=== PATIENT | female | born 2000 | race Caucasian/White ===

== ENCOUNTER 2020-11-20 15:40 | Emergency (ER) | payer OTHER, SELFPAY ==
[2020-11-20 15:43] VITALS: BP 148/86; PULSE 64; RESP 18; TEMP 37; O2SAT 100
--- NOTE | 2020-11-20 15:48 | DI.RAD.S_ITS ---
PROCEDURE: XR FINGER RT MIN 2V INDICATIONS: crush injury TECHNIQUE: AP hand, 2 views of the right finger(s) acquired. COMPARISON: None. FINDINGS: Bones: Mildly displaced of the distal phalanx of the ring finger. Soft tissues: Associated soft tissue swelling. IMPRESSION: Ring finger distal phalanx fracture Dictated by: Partha Siu M.D. on 11/20/2020 at 16:09 Approved by: Partha Siu M.D. on 11/20/2020 at 16:15
[2020-11-20] MEDS: LIDO 1%/SOD BICARB 8.4% (10ML) 10 ML SYRINGE INJ (19:06)
[2020-11-20] MEDS: HYDROCODONE/ACET 5/325 PREPACK 1 BOTTLE MISC (19:56)
--- NOTE | 2020-11-20 22:41 | ED_ITS ---
HPI - Extremity Injury (Upper) General Chief Complaint: Extremity Injury, Upper Stated Complaint: Right Ring Finger Injury Time Seen by Provider: 11/20/20 18:02 Source: patient Mode of arrival: Ambulatory Limitations: no limitations History of Present Illness HPI narrative: 20-year-old female nonsmoker with noncontributory medical history presents with a chief complaint of an injury to tip of her right ring finger about 24 hours ago. She was flipping the lever on a vehicle when it forcefully snapped upward and injured her finger. She denies any crushing type injury, laceration or other. She has minimal bleeding and wrapped in a bandage over the past 24 hours. She denies any fever or chills. She denies any numbness, tingling or weakness. She states her pain is worse when she moves and improves with rest. She is able to make a fist. She states that she had a significant allergic reaction to tetanus as a child and is therefore not up-to-date with his immunization. complaint: injury to: right Onset (ago): hour(s) Other Extremity Injury: Right: fingers Other injuries: none Handedness: right Place: home Severity: mild Relieving factors: rest Exacerbating factors: movement of extremity Context: direct blow Associated symptoms: denies other symptoms Treatments prior to arrival: bandage Related Data Previous Rx's Medication Instructions Recorded cephalexin 500 mg PO Q6H 7 Days #28 cap 11/20/20 Allergies Allergy/AdvReac Type Severity Reaction Status Date / Time Tetanus Vaccines and Toxoid Allergy Verified 11/20/20 19:06 Review of Systems Constitutional Constitutional: Denies chills, Denies fatigue, Denies fever(s), Denies frequent falls, Denies lethargy and Denies weakness Eyes Eyes: Denies change in vision, Denies eye discharge, Denies irritation and Denies loss of vision ENT Ears, Nose, Mouth, and Throat: Denies change in voice, Denies dizziness, Denies neck pain, Denies sore throat and Denies throat swelling Cardiovascular Cardiovascular: Denies chest pain, Denies irregular heart rhythm, Denies lightheadedness, Denies palpitations, Denies dyspnea, Denies dyspnea on exertion and Denies orthopnea Respiratory Respiratory: Denies cough, Denies dyspnea, Denies dyspnea on exertion and Denies wheezing Gastrointestinal Gastrointestinal: Denies abdominal pain, Denies change in bowel habits, Denies diarrhea, Denies nausea and Denies vomiting Musculoskeletal Musculoskeletal: Reports arthralgias, Reports limited range of motion, Denies neck pain and Denies numbness Integumentary/Breasts Skin/Breast: Denies pruritus, Denies erythema, Denies rash and Denies wounds Neurologic Neurologic: Denies behavioral changes, Denies confusion, Denies dizziness, Denies frequent falls, Denies loss of vision, Denies numbness and Denies weakness Psychiatric Psychiatric: Denies anxiety, Denies behavioral changes, Denies confusion, Denies depression, Denies homicidal ideation and Denies suicidal ideation Endocrine Endocrine: Denies fatigue, Denies flushing and Denies palpitations Hematologic/Lymphatic Hematologic/Lymphatic: Denies easy bruising Allergic/Immunologic Allergic/Immunologic: Denies urticaria, Denies throat swelling and Denies wheezing Patient History Smoking Status: Never smoker alcohol intake frequency: 0-2 drinks per day Substance Use Type: does not use Exam Narrative Exam Narrative: GEN: AOx3 and in mild distress EYES: Pupils are equal, round, and reactive to light and accommodation. Extraoccular muscles are intact bilaterally. There is no subconjunctival hemorrhage or exudate. CHEST: Lungs are clear to auscultation bilaterally and free of wheezes, rales, or rhonchi. Heart rate is regular rhythm, there are no murmurs, clicks, rubs, or gallops. There is no chest wall tenderness. ABD: Abdomen is soft and nontender. There is no guarding or rebound. Bowel sounds are normal in all 4 quadrants. There is no mass or organomegaly. EXT: Pain at tip of right ring finger. Full but painful range of motion. Sensation intact. Very minimal bleeding at nailfold. The nail has lifted up minimally at nailfold. Otherwise full painless ROM of all extremities with no loss of sensation or strength. SKIN: Warm, pink, and dry. No erythema or rash Initial Vital Signs Initial Vital Signs: Vital Signs Temperature 98.6 F 11/20/20 15:43 Pulse Rate 64 11/20/20 15:43 Respiratory Rate 18 11/20/20 15:43 Blood Pressure 148/86 H 11/20/20 15:43 Pulse Oximetry 100 11/20/20 15:43 Procedures Nerve Block Nerve Block 1: Time out performed: Yes Local Anesthetic: lidocaine 1% and with bicarb Amount of anesthesia used (mL): 4 Side: right Nerve Blocks: digital Procedure Successful: Yes Patient Tolerated Procedure: Well Complications: none Orthopedic Splinting/Casting Injury #1: Side: right Upper Extremity Injury Location: finger Upper Extremity Immobilizer: aluminum form splint Post splinting neuro exam: intact Post splinting vascular exam: intact Placed by: Nursing Course Course Course Narrative: once numbed finger is scrubbed with chlorhexadine and soaked for 15-20 minutes. No repair needed. Minimal displacement and no reduction needed. Extensive discussion regarding need for close follow up, antibiotics and return precautions. Patient demonstrates understanding by verbalizing back to me. Questions answered to her apparent satisfaction Orders Ordered: ED Orders 11/20/20 15:48 XR finger RT min 2V Stat Discontinued Medications Hydrocodone Bitart/Acetaminophen (Hydrocodone/Acet 5/325 Prepack) 1 bottle MISC SEEINSTR ONE Stop: 11/20/20 19:47 Last Admin: 11/20/20 19:56 Dose: 1 bottle Documented by: RADHA Lidocaine/Sodium Bicarbonate (Lido 1%/Sod Bicarb 8.4% (10ml) 10 Ml Syringe) 10 ml INJ NOW ONE Stop: 11/20/20 19:04 Last Admin: 11/20/20 19:06 Dose: 10 ml Documented by: PORTILLO Vital Signs Vital signs: Vital Signs - 8 hr 11/20/20 15:43 Temperature 98.6 F Pulse Rate 64 Respiratory Rate 18 Blood Pressure 148/86 H Pulse Oximetry 100 Discharge Plan Departure Patient Disposition: Home Clinical Impression: Finger fracture, right Qualifiers: Encounter type: initial encounter Finger: ring finger Fracture type: open Phalanx: distal Fracture alignment: displaced Qualified Code(s): S62.634B - Displaced fracture of distal phalanx of right ring finger, initial encounter for open fracture Instructions: DI for Finger Fracture Activity Restrictions/Additional Instructions: *You have been diagnosed with [right ring finger distal phalanx fracture with overlying laceration, this is potentially an open fracture and will be treated as such.] *What to do: *Take medications as directed: Even sent with pain medications and I sent antibiotics to [facility] at your request *Follow up with your primary care provider in 2-3 days, call for an appointment. Let them know you were seen in the Emergency Department and that we ask that you be seen in follow up. I have also included contact information for the on-call orthopedist *Return to ER if you should have any new, worsening or concerning symptoms Prescriptions: New cephalexin 500 mg capsule 500 mg PO Q6H 7 Days Qty: 28 RF: 0
== END 2020-11-20 20:02 | disposition home or self-care (01) ==
PROVIDERS: Emergency Provider Emergency Medicine
DX: S62.634B Displaced fracture of distal phalanx of right ring finger, initial encounter for open fracture (principal)
CPT/HCPCS: 64450; 73140; 99283

== ENCOUNTER → 2022-10-07 14:35 | Outpatient (CLI) | payer OTHER, SELFPAY ==
[2022-10-07 18:53] LABS: Add Manual Diff / Slide Review NO; Basophils Absolute Auto 0 /uL (0-100); Basophils Percent Auto 0.3 % (0-2); Eosinophils Absolute Auto 100 /uL (0-450); Eosinophils Percent Auto 0.9 % (2-4); Hematocrit 36.1 % (36-46); Hemoglobin 12.6 g/dL (12.0-16.0); Lymphocytes Absolute Auto 1600 /uL (1100-4500); Lymphocytes Percent Auto 23.6 % (25-40); Mean Corpuscular HGB Conc 34.8 % (30-36); Mean Corpuscular Hemoglobin 31.6 PG (26-34); Mean Corpuscular Volume 90.9 fL (80-100); Monocytes Absolute Auto 500 /uL (0-900); Monocytes Percent Auto 6.7 % (3-14); Neutrophils Absolute Auto 4600 /uL (1500-7000); Neutrophils Percent Auto 68.5 % (50-75); Platelet Count 248 X10^3/uL (150-400); Red Blood Cell Count 3.97 X10^6/uL (4.0-5.2); Red Cell Distribution Width 12.6 % (11.6-14.8); White Blood Cell Count 6.8 X10^3/uL (4.5-11.0)
[2022-10-07 19:10] LABS: Alanine Aminotransferase 17 IU/L (<35); Albumin 4.7 g/dL (3.5-5.0); Albumin Globulin Ratio 1.5 (1.0-2.8); Alkaline Phosphatase 88 U/L (38-126); Aspartate Aminotransferase 23 IU/L (14-36); BUN Creatinine Ratio 32.1 (6-22); Bilirubin Total 0.3 mg/dL (0.2-1.3); Blood Urea Nitrogen 18 mg/dL (7-17); Calcium 9.4 mg/dL (8.4-10.2); Carbon Dioxide 24 mmol/L (22-32); Chloride 101 mmol/L (98-107); Estimated Glomerular Filt Rate > 60 mL/min (>60); Globulin 3.2 g/dL (1.7-4.1); Glucose 101 mg/dL (70-100); HEMOLYSIS < 15 (0-50); Potassium 4.2 mmol/L (3.4-5.1); Sodium 138 mmol/L (137-145); Total Protein 7.9 g/dL (6.3-8.2)
[2022-10-07 19:17] LABS: HEMOLYSIS < 15 (0-50); Iron 170 ug/dL (37-170)
[2022-10-07 19:22] LABS: Hemoglobin A1C% w Est Avg Glu 4.9 % (4.0-6.0)
[2022-10-07 19:28] LABS: Percent Iron Saturation 44 % (15-50); Total Iron Binding Capacity 386 ug/dL (265-497); Transferrin 267 mg/dL (206-381)
[2022-10-07 19:44] LABS: Ferritin 9 ng/mL (6-137)
[2022-10-07 20:16] LABS: Folate 13.9 ng/mL (2.76-20.0); Vitamin B12 743 pg/mL (239-931)
== END ==
PROVIDERS: Visit Provider Naturopath
DX: Z13.21 Encounter for screening for nutritional disorder (principal); R53.83 Other fatigue
CPT/HCPCS: 80053; 82607; 82728; 82746; 83036; 83540; 83550; 85025

== ENCOUNTER → 2023-01-30 10:39 | Outpatient (CLI) | payer OTHER, SELFPAY ==
[2023-01-30 18:32] LABS: Add Manual Diff / Slide Review NO; Basophils Absolute Auto 0 /uL (0-100); Basophils Percent Auto 0.4 % (0-2); Eosinophils Absolute Auto 0 /uL (0-450); Eosinophils Percent Auto 0.1 % (2-4); Hematocrit 34.5 % (36-46); Hemoglobin 11.9 g/dL (12.0-16.0); Lymphocytes Absolute Auto 1500 /uL (1100-4500); Mean Corpuscular HGB Conc 34.6 % (30-36); Mean Corpuscular Hemoglobin 31.6 PG (26-34); Mean Corpuscular Volume 91.2 fL (80-100); Monocytes Absolute Auto 900 /uL (0-900); Monocytes Percent Auto 10.3 % (3-14); Neutrophils Absolute Auto 6300 /uL (1500-7000); Neutrophils Percent Auto 72.2 % (50-75); Platelet Count 253 X10^3/uL (150-400); Red Blood Cell Count 3.78 X10^6/uL (4.0-5.2); Red Cell Distribution Width 13.1 % (11.6-14.8); White Blood Cell Count 8.7 X10^3/uL (4.5-11.0)
[2023-01-30 19:09] LABS: Monotest Negative (Negative)
== END ==
PROVIDERS: PCP Family Medicine; Visit Provider Physician Assistant Medical
DX: J02.9 Acute pharyngitis, unspecified (principal)
CPT/HCPCS: 85025; 86318; 87070

== ENCOUNTER → 2023-06-30 09:30 | Outpatient (CLI) | payer OTHER, SELFPAY | PROVIDERS: PCP Family Medicine; Visit Provider Physician Assistant | DX: N39.0 Urinary tract infection, site not specified (principal) | CPT/HCPCS: 87077; 87086 ==

== ENCOUNTER → 2023-12-16 11:32 | Outpatient (CLI) | payer OTHER, SELFPAY ==
[2023-12-16 20:38] LABS: Add Manual Diff / Slide Review NO; Basophils Absolute Auto 0 /uL (0-100); Basophils Percent Auto 0.4 % (0-2); Eosinophils Absolute Auto 100 /uL (0-450); Eosinophils Percent Auto 1.2 % (2-4); Hemoglobin 12.5 g/dL (12.0-16.0); Lymphocytes Absolute Auto 1900 /uL (1100-4500); Lymphocytes Percent Auto 27.3 % (25-40); Mean Corpuscular HGB Conc 33.7 % (30-36); Mean Corpuscular Hemoglobin 30.1 PG (26-34); Mean Corpuscular Volume 89.3 fL (80-100); Monocytes Absolute Auto 400 /uL (0-900); Monocytes Percent Auto 5.4 % (3-14); Neutrophils Absolute Auto 4700 /uL (1500-7000); Neutrophils Percent Auto 65.7 % (50-75); Platelet Count 272 X10^3/uL (150-400); Red Blood Cell Count 4.14 X10^6/uL (4.0-5.2); Red Cell Distribution Width 12.9 % (11.6-14.8); White Blood Cell Count 7.1 X10^3/uL (4.5-11.0)
[2023-12-16 21:12] LABS: Estradiol, Total 124.2 pg/mL
[2023-12-16 22:52] LABS: HEMOLYSIS < 15 (0-50); Iron 193 ug/dL (37-170)
[2023-12-16 23:05] LABS: Percent Iron Saturation 47 % (15-50); Total Iron Binding Capacity 411 ug/dL (265-497)
[2023-12-16 23:08] LABS: Transferrin 336 mg/dL (206-381)
[2023-12-17 15:04] LABS: Vitamin B12 360 pg/mL (239-931)
[2023-12-17 23:14] LABS: Sex Hormone Binding Globulin 53.1 nmol/L (24.6-122.0)
[2023-12-18 08:13] LABS: Ferritin 7 ng/mL (6-137)
[2023-12-18 08:54] LABS: Folate 5.7 ng/mL (2.76-20.0)
[2023-12-22 10:50] LABS: Estrone,Serum 102 pg/mL (27-231)
[2023-12-22 21:36] LABS: Estrogen 313 pg/mL (.)
[2023-12-29 18:07] LABS: Testosterone, Free 2.8 pg/mL (0.0-4.2)
== END ==
PROVIDERS: PCP Family Medicine; Visit Provider Naturopath
DX: L70.0 Acne vulgaris (principal); N93.9 Abnormal uterine and vaginal bleeding, unspecified; Z13.21 Encounter for screening for nutritional disorder; R53.83 Other fatigue
CPT/HCPCS: 82607; 82670; 82672; 82679; 82728; 82746; 83540; 83550; 84270; 84402; 85025

== ENCOUNTER → 2024-02-10 11:19 | Outpatient (CLI) | payer OTHER, SELFPAY ==
[2024-02-10 20:21] LABS: Appearance Urine UA CLEAR; Bilirubin Urine UA NEGATIVE (NEGATIVE); Color Urine UA YELLOW; Glucose Urine UA NEGATIVE (Negative); Ketones Urine UA NEGATIVE (NEGATIVE); Leukocyte Esterase Urine UA NEGATIVE (NEGATIVE); Nitrite Urine UA NEGATIVE (Negative); Occult Blood Urine UA NEGATIVE (Negative); Protein Urine UA NEGATIVE (Negative); Specific Gravity Urine UA <=1.005 (1.000-1.035); Urobilinogen Urine UA 0.2 E.U./dL (0.2)
[2024-02-10 20:32] LABS: Bacteria Urine None Seen; Culture Indicated Urine Cult Not Indicated; RBC Urine None Seen (0-5/HPF); Squamous Epithelial Cell Urine None Seen (0-5/HPF); Transitional Epi Cells Urine None Seen (0-5/HPF); Urine Volume 10mL (spun); WBC Urine None Seen (0-5/HPF)
== END ==
PROVIDERS: PCP Family Medicine; Visit Provider Naturopath
DX: R53.81 Other malaise (principal)
CPT/HCPCS: 81001

== ENCOUNTER → 2024-07-28 14:11 | Outpatient (CLI) | payer OTHER, SELFPAY ==
[2024-07-28 18:58] LABS: Add Manual Diff / Slide Review NO; Basophils Absolute Auto 0 /uL (0-100); Basophils Percent Auto 0.4 % (0-2); Eosinophils Absolute Auto 200 /uL (0-450); Eosinophils Percent Auto 3.4 % (2-4); Hematocrit 36.8 % (36-46); Hemoglobin 12.8 g/dL (12.0-16.0); Lymphocytes Absolute Auto 1900 /uL (1100-4500); Lymphocytes Percent Auto 29.6 % (25-40); Mean Corpuscular HGB Conc 34.8 % (30-36); Mean Corpuscular Hemoglobin 32.8 PG (26-34); Mean Corpuscular Volume 94.2 fL (80-100); Monocytes Absolute Auto 400 /uL (0-900); Monocytes Percent Auto 6.3 % (3-14); Neutrophils Absolute Auto 3900 /uL (1500-7000); Neutrophils Percent Auto 60.3 % (50-75); Platelet Count 287 X10^3/uL (150-400); Red Blood Cell Count 3.91 X10^6/uL (4.0-5.2); Red Cell Distribution Width 12.4 % (11.6-14.8); White Blood Cell Count 6.5 X10^3/uL (4.5-11.0)
[2024-07-28 19:09] LABS: HEMOLYSIS < 15 (0-50); Iron 67 ug/dL (37-170)
[2024-07-28 19:31] LABS: Percent Iron Saturation 23 % (15-50); Total Iron Binding Capacity 294 ug/dL (265-497); Transferrin 266 mg/dL (206-381)
[2024-07-28 19:47] LABS: Ferritin 8 ng/mL (6-137)
[2024-07-28 20:16] LABS: Folate 11.1 ng/mL (2.76-20.0); Vitamin B12 825 pg/mL (239-931)
== END ==
PROVIDERS: PCP Family Medicine; Visit Provider Naturopath
DX: Z13.21 Encounter for screening for nutritional disorder (principal); R53.83 Other fatigue
CPT/HCPCS: 82607; 82728; 82746; 83540; 83550; 85025

== ENCOUNTER → 2024-10-19 14:28 | Outpatient (CLI) | payer OTHER, SELFPAY ==
[2024-10-19 21:49] LABS: Add Manual Diff / Slide Review NO; Basophils Absolute Auto 0 /uL (0-100); Basophils Percent Auto 0.5 % (0-2); Eosinophils Absolute Auto 100 /uL (0-450); Eosinophils Percent Auto 1.2 % (2-4); Hematocrit 37.1 % (36-46); Hemoglobin 12.7 g/dL (12.0-16.0); Lymphocytes Absolute Auto 1900 /uL (1100-4500); Lymphocytes Percent Auto 38.4 % (25-40); Mean Corpuscular HGB Conc 34.2 % (30-36); Mean Corpuscular Volume 93.6 fL (80-100); Monocytes Absolute Auto 300 /uL (0-900); Monocytes Percent Auto 6.9 % (3-14); Neutrophils Absolute Auto 2600 /uL (1500-7000); Platelet Count 311 X10^3/uL (150-400); Red Blood Cell Count 3.96 X10^6/uL (4.0-5.2); Red Cell Distribution Width 12.7 % (11.6-14.8)
[2024-10-19 22:09] LABS: Alanine Aminotransferase 15 IU/L (<35); Albumin 4.9 g/dL (3.5-5.0); Albumin Globulin Ratio 1.4 (1.0-2.8); Alkaline Phosphatase 67 U/L (38-126); Aspartate Aminotransferase 27 IU/L (14-36); Bilirubin Total 0.4 mg/dL (0.2-1.3); Blood Urea Nitrogen 15 mg/dL (7-17); Calcium 10.3 mg/dL (8.4-10.2); Carbon Dioxide 28 mmol/L (22-32); Chloride 104 mmol/L (98-107); Globulin 3.4 g/dL (1.7-4.1); Glucose 82 mg/dL (70-100); HEMOLYSIS < 15 (0-50); Sodium 137 mmol/L (137-145); Total Protein 8.3 g/dL (6.3-8.2)
[2024-10-19 22:16] LABS: BUN Creatinine Ratio 12.1 (6-22); Estimated Glomerular Filt Rate > 60 mL/min (>60)
[2024-10-19 22:19] LABS: HEMOLYSIS < 15 (0-50); Iron 175 ug/dL (37-170)
[2024-10-19 22:21] LABS: Hemoglobin A1C% w Est Avg Glu 4.6 % (4.0-6.0)
[2024-10-19 22:37] LABS: Percent Iron Saturation 63 % (15-50); Total Iron Binding Capacity 276 ug/dL (265-497); Transferrin 245 mg/dL (206-381)
[2024-10-19 22:38] LABS: Estradiol, Total 44.7 pg/mL
[2024-10-19 22:42] LABS: Ferritin 12 ng/mL (6-137)
[2024-10-19 22:44] LABS: Free T3, Triiodothyronine Free 4.17 pg/mL (2.77-5.27); Free T4, Direct Thyroxine 0.89 ng/dL (0.78-2.19)
[2024-10-19 23:35] LABS: Folate 10.9 ng/mL (2.76-20.0); Vitamin B12 709 pg/mL (239-931)
[2024-10-19 23:53] LABS: Blood Urea Nitrogen 15 mg/dL (7-17)
[2024-10-20 00:01] LABS: BUN Creatinine Ratio 11.6 (6-22); Estimated Glomerular Filt Rate 59 mL/min (>60)
[2024-10-21 12:10] LABS: Sex Hormone Binding Globulin 53.7 nmol/L (24.6-122.0)
[2024-10-23 20:07] LABS: Estrogen 163 pg/mL (.)
[2024-10-24 12:39] LABS: Estrone,Serum 60 pg/mL (27-231)
[2024-10-27 22:07] LABS: Testosterone, Free 2.7 pg/mL (0.0-4.2)
== END ==
PROVIDERS: PCP Family Medicine; Visit Provider Naturopath
DX: Z13.21 Encounter for screening for nutritional disorder (principal); R42 Dizziness and giddiness; R53.83 Other fatigue; L70.0 Acne vulgaris; N93.9 Abnormal uterine and vaginal bleeding, unspecified
CPT/HCPCS: 80053; 82565; 82607; 82670; 82672; 82679; 82728; 82746; 83036; 83540; 83550; 84270; 84402; 84439; 84443; 84481; 84520; 85025

== ENCOUNTER → 2024-12-28 14:03 | Outpatient (CLI) | payer SELFPAY ==
[2024-12-28 19:16] LABS: Add Manual Diff / Slide Review NO; Basophils Absolute Auto 0 /uL (0-100); Basophils Percent Auto 0.3 % (0-2); Eosinophils Absolute Auto 100 /uL (0-450); Eosinophils Percent Auto 1.4 % (2-4); Hematocrit 34.6 % (36-46); Hemoglobin 12.2 g/dL (12.0-16.0); Lymphocytes Absolute Auto 2200 /uL (1100-4500); Lymphocytes Percent Auto 40.6 % (25-40); Mean Corpuscular HGB Conc 35.3 % (30-36); Mean Corpuscular Hemoglobin 33.1 PG (26-34); Mean Corpuscular Volume 93.6 fL (80-100); Monocytes Absolute Auto 400 /uL (0-900); Monocytes Percent Auto 8.1 % (3-14); Neutrophils Absolute Auto 2700 /uL (1500-7000); Neutrophils Percent Auto 49.6 % (50-75); Platelet Count 241 X10^3/uL (150-400); White Blood Cell Count 5.5 X10^3/uL (4.5-11.0)
[2024-12-28 19:26] LABS: Alanine Aminotransferase 14 IU/L (<35); Albumin 4.5 g/dL (3.5-5.0); Albumin Globulin Ratio 1.6 (1.0-2.8); Alkaline Phosphatase 72 U/L (38-126); Aspartate Aminotransferase 23 IU/L (14-36); BUN Creatinine Ratio 30.6 (6-22); Bilirubin Total 0.2 mg/dL (0.2-1.3); Blood Urea Nitrogen 22 mg/dL (7-17); Calcium 9.5 mg/dL (8.4-10.2); Carbon Dioxide 26 mmol/L (22-32); Chloride 105 mmol/L (98-107); Estimated Glomerular Filt Rate > 60 mL/min (>60); Globulin 2.9 g/dL (1.7-4.1); Glucose 95 mg/dL (70-99); HEMOLYSIS < 15 (0-50); Potassium 3.8 mmol/L (3.4-5.1); Sodium 138 mmol/L (137-145); Total Protein 7.4 g/dL (6.3-8.2)
== END ==
PROVIDERS: PCP Family Medicine; Visit Provider Naturopath
DX: Z13.21 Encounter for screening for nutritional disorder (principal); R53.83 Other fatigue
CPT/HCPCS: 80053; 85025

== ENCOUNTER → 2025-02-16 14:26 | Outpatient (CLI) | payer OTHER, SELFPAY ==
[2025-02-16 19:02] LABS: Add Manual Diff / Slide Review NO; Basophils Absolute Auto 0 /uL (0-100); Basophils Percent Auto 0.3 % (0-2); Eosinophils Absolute Auto 0 /uL (0-450); Eosinophils Percent Auto 0.3 % (2-4); Hemoglobin 12.5 g/dL (12.0-16.0); Lymphocytes Absolute Auto 1800 /uL (1100-4500); Lymphocytes Percent Auto 32.4 % (25-40); Mean Corpuscular HGB Conc 35.6 % (30-36); Mean Corpuscular Hemoglobin 33.3 PG (26-34); Mean Corpuscular Volume 93.5 fL (80-100); Monocytes Absolute Auto 200 /uL (0-900); Monocytes Percent Auto 3.9 % (3-14); Neutrophils Absolute Auto 3600 /uL (1500-7000); Neutrophils Percent Auto 63.1 % (50-75); Platelet Count 271 X10^3/uL (150-400); Red Blood Cell Count 3.75 X10^6/uL (4.0-5.2); Red Cell Distribution Width 12.5 % (11.6-14.8); White Blood Cell Count 5.6 X10^3/uL (4.5-11.0)
[2025-02-16 19:10] LABS: Reticulocyte Count, Percent 0.7 % (1.1-2.6)
[2025-02-16 19:19] LABS: Alanine Aminotransferase 14 IU/L (<35); Albumin 4.6 g/dL (3.5-5.0); Albumin Globulin Ratio 1.5 (1.0-2.8); Alkaline Phosphatase 75 U/L (38-126); Aspartate Aminotransferase 28 IU/L (14-36); BUN Creatinine Ratio 19.4 (6-22); Bilirubin Total 0.7 mg/dL (0.2-1.3); Blood Urea Nitrogen 14 mg/dL (7-17); Calcium 9.5 mg/dL (8.4-10.2); Carbon Dioxide 25 mmol/L (22-32); Chloride 105 mmol/L (98-107); Estimated Glomerular Filt Rate > 60 mL/min (>60); Globulin 3.1 g/dL (1.7-4.1); Glucose 141 mg/dL (70-99); HEMOLYSIS < 15 (0-50); Potassium 3.6 mmol/L (3.4-5.1); Sodium 139 mmol/L (137-145); Total Protein 7.7 g/dL (6.3-8.2)
[2025-02-16 19:53] LABS: Ferritin 10 ng/mL (6-137)
[2025-02-18 07:09] LABS: Haptoglobin 93 mg/dL (33-278)
== END ==
PROVIDERS: PCP Family Medicine; Visit Provider Naturopath
DX: R10.2 Pelvic and perineal pain (principal); R53.83 Other fatigue; D64.9 Anemia, unspecified; R74.9 Abnormal serum enzyme level, unspecified
CPT/HCPCS: 80053; 82668; 82728; 83010; 83051; 85025; 85045